=== PATIENT | male | born 1945 | race Caucasian/White ===

== ENCOUNTER 2024-03-20 12:46 | Outpatient (AMB) | payer MEDICARE, SELFPAY ==
--- NOTE | 2024-03-20 13:09 | MHC.OFFVIS ---
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 The patient describes his pain as sharp and severe in nature. He did undergo left knee arthroscopic surgery approximately 8 years ago. He got temporary relief from that procedure. The patient states that last week he had an injection given into his left knee performed by another provider. That injection gave him mild relief. He has tried Tylenol and anti-inflammatory medicines which gave him minimal relief. The patient has difficulty walking even short distances because of his pain. At this point is left knee pain is interfering with his activities of daily living and his ability to sleep well through the night. Allergies No Known Allergies Allergy (Verified 03/20/24 13:13) Medication List - Last Reconciled 03/20/24 by Frantz Walsh MD doxepin mg PO losartan mg PO DAILY zolpidem mg PO [facility] Medical History (Updated 03/21/24 @ 08:44 by Frantz Walsh MD) History of torn meniscus of left knee Social History (Updated 03/20/24 @ 13:13 by BAIRON Kaur) Patient Tobacco Use Status: Never used Tobacco Current occupation: rt handed Physical Exam Vital Signs: BMI result Body Mass Index 27.8 Const Other: Well-nourished well-developed very friendly male awake alert and oriented x3 in no acute distress Extrem Other: Bilateral lower extremity examination shows good capillary refill, no skin lesions noted, normal sensation light touch Left knee examination shows a minimal effusion, palpable crepitus with range of motion, pain with range of motion, range of motion from -3 degrees to 115 degrees, no instability Results Reviewed Results Reviewed: X-rays of the patient's left knee show end-stage degenerative joint disease with grade 4 [id number] arthritis in the medial compartment, subchondral sclerosis, osteophyte formation, no acute bony abnormalities Assessment & Plan Assessment & Plan (1) Arthritis of left knee: Code(s): M17.12 - Unilateral primary osteoarthritis, left knee Category: Medical Plan Mr. Kumar presents with left knee pain due to end-stage degenerative joint disease. I had a lengthy discussion with the patient regarding the treatment options. At this point he appears to be failing continued non operative treatments. The patient is considering undergoing left total knee replacement surgery later this year or early next year. He will contact my office to pick a surgery date when he chooses to do so. I will see him back just prior to his surgery to answer any final questions that he might have. Feel free to call me at any time should questions regarding his orthopedic management arise. I spent 20 minutes in reviewing the patient's records and imaging studies, seeing the patient and documenting in the medical record. Orders: Orders XR knee LT 3V 03/20/24 M25.562 - Pain in left knee Referrals Vascular Surgery Referral I70.90 - Unspecified atherosclerosis Coding Level of Care Code New Pt Level 3 (70809) Complex EM visit Add On G2211 Diagnoses Arthritis of left knee M17.12
[2024-03-20 13:12] VITALS: BMI 27.8
--- OUTSIDE RECORDS SUMMARY | 2024-03-20 14:33 | XMS_ITS | Clinical Summary ---
Author Organization [facility] Address [address] [place] [address] Care Team Providers Care Prawn Trawler Hand Name Role Phone Becca Stevenson NP Primary Care Provider [phone] Allergies No known active allergies Medications Medication Sig Dispensed Refills Start Date End Date Status ALPRAZolam (XANAX) 0.25 MG tablet Take 0.25 mg by mouth. Active fexofenadine (GANGA) 180 MG tablet Take 180 mg by mouth. Active losartan (COZAAR) 50 MG tablet 05/27/2023 Active tamsulosin (FLOMAX) 0.4 MG capsule Take 0.4 mg by mouth daily. 06/13/2023 Active zolpidem (AMBIEN) 5 MG tablet Take 5 mg by mouth nightly as needed. Active Social History Tobacco Use Types Packs/Day Years Used Date Smoking Tobacco: Never Smokeless Tobacco: Never Sex and Gender Information Value Date Recorded Sex Assigned at Not on file Gender Identity Not on file Sexual Orientation Not on file Last Filed Vital Signs Vital Sign Reading Time Taken Comments Blood Pressure 117/74 07/16/2023 10:16 AM EDT Pulse 82 07/16/2023 10:16 AM EDT Temperature 36.3 ??C (97.3 ??F) 07/16/2023 10:16 AM E DT Respiratory Rate 18 07/16/2023 10:16 AM EDT Oxygen Saturation 95% 07/16/2023 10:16 AM EDT Inhaled Oxygen Concentration - - Weight - - Height - - Body Mass Index - - Plan of Treatment Health Maintenance Due Date Last Done Comments Hepatitis C Virus Screening 1945 DTaP/Tdap/Td Vaccines (1 - Tdap) 1965 Pneumococcal Vaccines 50+ (1 of 1 - PCV) 1996 Zoster (Shingles) Vaccine (1 of 2) 1996 RSV Vaccine 60 years and older and Patients (1 - 1-dose 75+ series) 2021 Influenza Vaccine 09/28/2023 10/20/2022, , 11/06/2020, Additional history exists COVID-19 Vaccine (2023- season) 2023 11/26/2021, 12/21/2020 Hepatitis B Vaccines Aged Out No long er eligible based on patient's age to complete this topic Care Teams Prawn Trawler Hand Relationship Specialty Start Date End Date Becca Stevenson NP [address] [facility] [place] [address] PCP - General 07/16/23
--- OUTSIDE RECORDS SUMMARY | 2024-03-20 14:33 | XMS_ITS | Clinical Summary ---
Author Organization [place] [address] [facility] Address [address] [facility] [place] [address] Phone Care Team Providers Care Assembly Worker Name Role Phone Becca Stevenson NP Primary Care Provider Allergies No known active allergies Medications Medication Sig Dispensed Refills Start Date End Date Status doxepin 3 mg tablet Take 3 mg by mouth at bedtime as needed (insomnia). 09/11/2023 Active tamsulosin (FLOMAX) 0.4 mg 24 hr capsule Take 1 Capsule by mouth daily. Take 30 mins after same meal every day. Active ALPRAZolam (XANAX) 0.25 mg tablet Take 1 tablet (0.25 mg total) by mouth. Active bicalutamide (CASODEX) 50 mg tablet 01/13/2022 Active chlorproMAZINE (THORAZINE) 25 mg tablet Take 1 tablet (25 mg total) by mouth. 11/14/2013 Active fexofenadine (GANGA) 180 mg tablet Take 1 tablet (180 mg total) by mouth. Active omeprazole (PriLOSEC) [address] capsule 06/06/2018 Active polyethylene glycol (GoLYTELY) 236-22.74-6.74 -5.86 gram solution 07/01/2020 Active zolpidem (AMBIEN) 5 mg tablet Take 1 tablet (5 mg total) by mouth. 03/18/2017 Active losartan (COZAAR) 50 mg tablet Take 1 tablet (50 mg total) by mouth 1 (one) time each day. 30 tablet 03/05/2024 Active losartan (COZAAR) 50 mg tablet Take 1 tablet (50 mg total) by mouth 1 (one) time each day. 07/17/2023 03/05/2024 Discontinued (Reorder) Active Problems Problem Noted Date Diagnosed Date Prediabetes 07/26/2023 Anemia of chronic disease 01/10/2023 Anxiety 07/29/2022 CKD (chronic kidney disease) 07/29/2022 Hypertension 07/29/2022 Insomnia 07/29/2022 Prostate cancer 07/29/2022 Chronic cholecystitis 11/21/2013 Encounters Date Type Department Care Team Description 01/17/2024 1:00 PM EST Office Visit Walk-In [facility] [address] [address] Dc Delgado PA Symptoms involving urinary system (Primary Dx) 01/16/[facility]24 [facility] [address] [facility] [place] [id number] Becca Stevenson NP Involuntary urine leakage from Last 3 Months Immunizations Name Administration Dates Next Due Influenza, Unspecified 11/27/2022 Pfizer SARS-CoV-2 COVID-19, mRNA, LNP-S, preservative free 12/28/2022 Pneumococcal conjugate 20 va lent (Prevnar 20, PCV 20) 2mo and older 01/09/2023 Zoster recombinant (Shingrix) 19yo and older 02/2019,02/27/2019 Surgical History Surgery Date Site/Laterality Comments CHOLECYSTECTOMY PROCEDURE: HISTORICAL CHOLECYSTECTOMY HERNIA REPAIR PROCEDURE: HISTORICAL HERNIA REPAIR/ARIANE SHOULDER SURGERY Right PROCEDURE: HISTORICAL SHOULDER SURGERY Family History Medical History Relation Name Comments Breast cancer Daughter Colon cancer Father Coronary artery disease Maternal Grandfather Stroke Mother Other cancer Paternal Grandmother Relation Name Status Comments Daughter Alive Father Maternal Grandfather Mother Paternal Grandmother Social History Tobacco Use Types Packs/Day Years Used Date Smoking Tobacco: Never Smokeless Tobacco: Never Alcohol Use Standard Drinks/Week Comments Not Currently 0 (1 standard drink = 0.6 oz pur e alcohol) Sex and Gender Information Value Date Recorded Sex Assigned at Male 03/05/2024 2:35 PM EST Gender Identity Male 03/05/2024 2:35 PM EST Sexual Orientation Straight 03/05/2024 2: 35 PM EST Job Start Date Occupation Industry Not on file Not on file Not on file Obstetrics History Last Filed Vital Signs Vital Sign Reading Time Taken Comments Blood Pressure 111/56 01/17/2024 1:12 PM EST Pulse 80 01/17/2024 1:12 PM EST Temperature 36.6 ??C (97.9 ??F) 01/17/2024 1:12 PM ES T Respiratory Rate - - Oxygen Saturation 96% 01/17/2024 1:12 PM EST Inhaled Oxygen Concentration - - Weight 82.2 kg (181 lb 4.8 oz) 07/25/2023 10:36 AM EDT Height 175.3 cm (5' 9 ) 07/25/2023 10:36 AM EDT Body Mass Index 26.77 07/25/2023 10:36 AM EDT Plan of Treatment Upcoming Encounters Date Type Department Care Team (Late st Contact Info) Description 04/02/2024 3:00 PM EST [facility] [address] [place], [place] [phone] Becca Stevenson, [place] [address] [place] [address] Health Maintenance Due Date Last Done Comments DTaP,Tdap,and Td Vaccines (1 - Tdap) 1965 RSV Immunization Patients 60+ Years Old (1 - 1-dose 75+ series) 2021 Social Influencers of Health Screening 02/03/2022 COVID-19 Vaccine ( season) 2023 12/28/2022, 11/24/2022, 11/26/2021, Additional history exists Influenza Vaccine (#1) 2023 11/27/2022 Depression Screening 01/10/2024 01/09/2023 Falls Risk Assessment 01/10/2024 01/09/2023 Medicare Annual Wellness Visit 01/10/2024 01/09/2023 Hypertension/CHF/CAD Annual BMP Blood Test 11/15/2024 11/16/2023, 08/17/2023, 07/17/2023, Additional history exists Cholesterol Screening (Lipid Panel) 01/10/2028 01/09/2023 Zoster Vaccines Completed 05/29/2019, 02/27/2019 Hepatitis C Screening Completed 01/09/2023 Pneumococcal Vaccine: 65+ Years Completed 01/09/2023 HIB Vaccines Aged Out No longer eligi ble based on patient's age to complete this topic HPV Vaccines Aged Out No longer eligi ble based on patient's age to complete this topic Hepatitis A Vaccines Aged Out No long er eligible based on patient's age to complete this topic Hepatitis B Vaccines Aged Out No long er eligible based on patient's age to complete this topic IPV Vaccines Aged Out No longer eligi ble based on patient's age to complete this topic MMR Vaccines Aged Out No longer eligi ble based on patient's age to complete this topic Meningococcal ACWY Vaccine Aged Out N o longer eligible based on patient's age to complete this topic RSV Immunization Patients Under 20 months Aged Out No longer eligible based on patient's age to complete this topic Varicella Vaccines Aged Out No longer eligible based on patient's age to complete this topic Procedures Procedure Name Priority Date/Time Associated Diagnosis Comments POC URINE NON-AUTO W/O MICRO Routine 01/17/2024 1:55 PM EST Symptoms involving urinary system URINALYSIS MICROSCOPIC ONLY Routine 01/17/2024 1:55 PM EST Symptoms involving urinary system URINALYSIS MICROSCOPIC ONLY Routine 01/17/2024 1:55 PM EST Symptoms involving urinary system CULTURE URINE Routine 01/17/2024 1:55 PM EST Symptoms involving urinary system ANNUAL BMP BLOOD TEST Routine 07/17/2023 HEPATITIS C SCREENING Routine 01/09/2023 DEPRESSION SCREENING Routine 01/09/2023 FALLS RISK ASSESSMENT Routine 01/09/2023 LIPID PANEL Routine 01/09/2023 from Last 3 Months or Most Recently Relevant to Health Maintenance Results * (ABNORMAL) Urinalysis microscopic only (01/17/2024 1:55 PM EST) RBC, Urine 5.8(H) 0 - 4 /HPF LAB URINALYSIS - AUTOMATED METHOD 01/17/2024 7:46 PM EST [facility] WBC, Urine 0.4 0 - 4 /HPF LAB URINALYSIS - AUTOMATED METHOD 01/17/2024 7:46 PM EST [facility] Squamous Epithelial, Urine 2 0 - 60 /LPF LAB URINALYSIS - AUTOMATED METHOD 01/17/2024 7:46 PM EST [facility] Bacteria, Urine Negative Negative /HPF LAB URINALYSIS - AUTOMATED METHOD 01/17/2024 7:46 PM EST [facility] Hyaline Casts, Urine 0.0 0 - 3 /LPF LAB URINALYSIS - AUTOMATED METHOD 01/17/2024 7:46 PM EST [facility] Urine Urine specimen obtained by clean catch procedure / Unknown Non-blood Collection / Unknown 01/17/2024 1:55 PM EST 01/17/2024 1:55 PM EST Dc [facility] LAB URINE ORDERABL ES [facility] [address] [place] [address], * (ABNORMAL) POC Urine Non-Auto W/O Micro (01/17/2024 1:55 PM EST) GLUCOSE POC Negative Negative, Trace mg/dL Leukocytes UA POC Negative Negative mg/dL Nitrite UA POC Negative Urobilinogen UA POC 0.2 E.U./dL mg/dL Protein UA POC Positive Positive, Negative PH UA POC 5.0 STELLA/HM UA POC 250(A) Negative Specific [place] UA POC 1.020 Ketones UA POC Negative Negative Bilirubin UA POC Negative Negative Urine Urine specimen obtained by clean catch procedure / Unknown 01/17/2024 1:55 PM EST Dc [facility] POINT OF CARE TEST ENTER/EDIT ORDERABLES * Culture urine (01/17/2024 1:55 PM EST) Culture, Urine <10,000 CFU/mL gram negative bacilli, insignificant count, no further workup 01/18/2024 12:54 PM EST [facility] Urine Urine specimen obtained by clean catch procedure / Unknown Non-blood Collection / Unknown 01/17/2024 1:55 PM EST 01/17/2024 1:55 PM EST Dc [facility] LAB MICROBIOLOGY - GENERAL ORDERABLES [facility] [address] [place] [address], * Annual BMP Blood Test (07/17/2023) Pathologist [facility] Annual BMP Blood Test Abstracted Historical Provider [facility] Falls Risk Assessment (01/09/2023) [facility] Falls Risk Assessment Abstracted Historical Provider [facility] * Depression Screening (01/09/2023) [facility] Depression Screening Abstracted Historical Provider [facility] * Hepatitis C Screening (01/09/2023) [facility] Hepatitis C Screening Abstracted Historical Provider [facility] E (ABNORMAL) Lipid panel (01/09/2023) [facility] LDL/HDL Ratio 4 0 - 4 Triglycerides 318(A) 0 - 150 mg/dL Cholesterol 235(A) 0 - 200 mg/dL HDL 56 40 mg/dL LDL Cholesterol 116(A) 0 - 100 mg/dL Blood Venous blood specimen / Unknown Historical Provider LAB BLOOD ORDERAB LES from Last 3 Months or Most Recently Relevant to Health Maintenance Care Teams Assembly Worker Relationship Specialty Start Date End Date Becca Stevenson NP [address] [facility] [place] [address] PCP - General 03/23/22
--- OUTSIDE RECORDS SUMMARY | 2024-03-20 14:33 | XMS_ITS | Continuity of Care Document ---
Author Organization [place] [facility] Address [address] [place] [phone] Care Team Providers Care Material Flow Analyst Name Role Phone DONOVAN TERRELL Primary Care Provider DONOVAN TERRELL Referring Provider Assessment Encounter Date Assessment Date Assessment LastModified by Organization Details LastModified Time 03/11/2024 03/11/2024 Reviewed with patient the options available for the latest amplification devices, the differences between makes/models of devices, and the importance of selecting the best make/model for their lifestyle and audiometric needs. Discussed the importance of optimizing the ability to perceive and understand speech by analyzing the output of devices using speech mapping as part of our real-ear verification procedure. The patient's concerns about using hearing devices were discussed. Taking into consideration the patient's lifestyle, personal preferences, severity of hearing loss & hearing handicap, a fitting of dyqxklbs-kx-hiz- canal hearing devices is expected to provide a significant improvement in the patient's ability to communicate. The patient has an insurance that requires an in-network crisis manager to submit the claim and to be credentialed with Medicare. He was provided a list of area audiologists and encouraged to verify that they accept his insurance. [email or web address] Not available 03/11/2024 10:33:17 Plan of Treatment Reminders Order Date Submit Date Provider Last Modified By Organization Details Last Modified Time Details Appointments None record ed. Lab None record ed. Referral None record ed. Procedures None record ed. Surgeries None record ed. Imaging None record ed. Medication Orders None record ed. Patient TargetsNo targets recorded. Patient InstructionsNo instructions recorded. Reason for Referral None Reported. Problems Name Problem SNOMED Code Status Onset Date Resolution Date Notes Provider Name and Address Organization Details Recorded Time Sensorineur al hearing loss of bilateral ears 992207807 Active 2023 Lola hamilton [place] - [facility] 4 14:14:16 Sensorineur al hearing loss in right ear [id number] 0 Active 2023 SANGITA Browne MD [address] [place] [address], [phone] - [facility] 4 10:37:19 Problem Notes None recorded. Procedures Surgical History Date Name Laterality Status Provider Name and Address Organization Details Recorded Time 01/24/2024 Air only Audio (32057) completed Lola Arevalo [place] - [facility] 01/24/2024 10:09:34 10/17/2023 Comp Audio with Tymps (05374 & 60556) completed Lola Arevalo [place] [facility] 10/17/2023 14:14:07 Imaging Results None recorded. Procedure Notes None recorded. Medical Equipment None Reported. Medications Name Sig Start Date Stop Date Status Note LastModified by Organization Details LastModified Time losartan 50 mg tablet active Not Available Not Available No t Available tamsulosin 0.4 mg capsule active Not Available Not Available Not Available zolpidem 5 mg tablet 2023 completed Not Available Not Available Not Available amoxicillin 875 mg-potassium clavulanate 125 mg tablet 2023 completed Not Available Not Available Not Available doxepin 3 mg tablet active Not Available Not Available Not Available Vitals None Recorded Social History None recorded. Functional Status None recorded. Mental Status None recorded. Family History Nothing Reported. Medical History Condition Response Allergies/Hayfever Y Heart Problems N Anxiety N Tonsil Infections N Emphysema N Migraines N Thyroid Problems N Glaucoma N Depression N COPD N Developmental Delay N Nasal or Sinus Problems N Anemia N Immune System Disorder N Anesthesia Complications N Heart Attack ([place]) N Other Skin Condition N Diabetes N Rhinitis N Bleeding Disorder N Food Allergy N Arthritis N Hearing Loss Y Hyperlipidemia N Cancer Y Stroke N Dementia N Nasal polyps N Asthma N High Cholesterol N Sleep Disorder N GERD/Reflux N Liver Disease N Headaches N Fibromyalgia N Hypertension N Speech Delay N Kidney Disease N Past Encounters Encounter ID Performer Location Encounter Start Date Encounter Closed Date Diagnosis/Indication Diagnosis SNOMED-CT Code Diagnosis ICD10 Code Diagnosis Note [id number] JESUS ALBERTO RAMIREZ, [place] [address] [facility],[place] [address] [address] [place] [address] 03/11/2024 09:44:32 03/12/2024 08:06:31 Sensorineural hearing loss of bilateral ears [id number] H90.3 Audiologic al evaluation results:Ri ght ear:{{Norm al Normal through 2 kHz Mild* Moderate M oderately- severe Sev ere Profou nd}} {{hearing sloping to a mild slopi ng to a moderate s loping to moderately severe* sl oping to severe slo ping to profound f lat high frequency low frequency mid frequency cookie bite arias curve}} {{with sen sorineural hearing loss with* cond uctive hearing loss with mixed hearing loss with}} {{excellen t* good fa ir poor no measurable }} word recognitio n.Left ear:{{Norm al* Normal through 2 kHz Mild M oderate Mo derately-s evere Giana re Profoun d}} {{hearing sloping to a mild slopi ng to a moderate s loping to moderately severe* sl oping to severe slo ping to profound f lat high frequency low frequency mid frequency cookie bite arias curve}} {{with sen sorineural hearing loss with* cond uctive hearing loss with mixed hearing loss with}} {{excellen t* good fa ir poor no measurable }} word recognitio n.Asymmetr ic SNHL at 250 to 2kHz and WRS worst in the right. Tympanomet ry:Right Ear:{{Type A* Type As Type Ad Type C Type C, shallow & rounded Ty pe B Type B with large volume Cou ld not maintain a hermetic seal}}Left Ear:{{Type A* Type As Type Ad Type C Type C, shallow & rounded Ty pe B Type B with large volume Cou ld not maintain a hermetic seal}} Health Concerns Section Related Observation LastModified by Organization Detai ls LastModified Time None Recorded Concern Status LastModified by Organization Details LastModified Time None Recorded Payers Encounter Date Sequence Insurance Name Policy Number Policy [place] Covered Member ID [place] Member ID Guarantor Name 03/11/2024 2 [place] [id number] Clemente Kumar [id number] Clemente Kumar 03/11/2024 1 [place] [employer] Clemente Kumar [id number] Clemente Kumar Notes Date Note Type Note Provider Name and Address Organization Details Recorded Time 03/11/2024 text/html Amplification HPIReported bypatient.Current satisfaction with amplificationthey are not satisfied with current settings and technology Daily useinconsistent use of amplificationNotes:[employer] st hearing aid around 2009. Worked with Kary Parada until she retired. Went to [place] and is currently fitted with [employer] hearing aid; reportedly not satisfied as they keep clogging with wax and the dome is difficult to put back on. Patient returned to our office for the initial fitting of {{hearing devices* a hearing device in the right ear a hearing device in the left ear}} as a {{first time user of amplification* longsta nding user of amplification longstan ding user of hearing devices longstanding user of amplification in the right ear longstanding user of amplification in the left ear}}. They have reported significant difficulty communicating in {{adverse listening situations* both adverse listening situations and in quiet}} and amplification has been recommended. Patient's case has been reviewed by an rental counter clerk who has provided medical clearance for the use of hearing devices. JESUS ALBERTO RAMIREZ, [address],[place] [address], [place], [phone], [facility] 03/11/2024 10:33:49
--- OUTSIDE RECORDS SUMMARY | 2024-03-20 14:33 | XMS_ITS | Clinical Summary ---
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 0 Active zolpidem (AMBIEN) 5 MG tablet 0 03/18/2017 Active omeprazole (PriLOSEC) 20 MG capsule 0 06/06/2018 Active chlorproMAZINE (THORAZINE) 25 MG tablet Take 25 mg by mouth. 0 11/14/2013 Active PEG 7110-NMf-ZvPad-NaCl-Na Sulf (PEG-3350/Electrolytes ) 236 g SOLR 0 07/01/2020 Active losartan (COZAAR) tablet 25 mg 0 11/30/2020 Active bicalutamide (CASODEX) 50 MG tablet 0 01/13/2022 Active Active Problems Problem Noted Date Diagnosed Date Arthritis of knee, left 08/06/2021 Arthritis of left knee 04/13/2017 Arthralgia of left knee 04/13/2017 Chronic pain of left knee 11/08/2016 Family History Medical History Relation Name Comments Cancer Father Relation Name Status Comments Father Social History Tobacco Use Types Packs/Day Years Used Date Smoking Tobacco: Never Assessed Sex and Gender Information Value Date Recorded Sex Assigned at Not on file Gender Identity Not on file Sexual Orientation Not on file Job Start Date Occupation Industry Not on file Not on file Not on file Last Filed Vital Signs Vital Sign Reading Time Taken Comments Blood Pressure - - Pulse - - Temperature - - Respiratory Rate - - Oxygen Saturation - - Inhaled Oxygen Concentration - - Weight 72.6 kg (160 lb) 11/08/2016 9:07 AM EDT Height 175.3 cm (5' 9 ) 11/08/2016 9:07 AM EDT Body Mass Index 23.63 11/08/2016 9:07 AM EDT Plan of Treatment Health Maintenance Due Date Last Done Comments Hepatitis C Screening 1945 COVID-19 Vaccine (#1) 1946 Depression Screening 1958 Preventative Health Evaluation 1964 DTap / Tdap / Td (1 - Tdap) 1965 Shingrix-Zoster Vaccine (1 of 2) 1996 Fall Risk Assessment 2011 Pneumococcal Vaccine (1 of 1 - PCV) 2011 RSV Adult > 60+ Yrs or Pregn ant (1 - 1-dose 75+ series) 2021 Influenza Vaccine (#1) 2023 Hepatitis B Vaccines Aged Out No long er eligible based on patient's age to complete this topic RSV Ped < 20 months Aged Out No longe r eligible based on patient's age to complete this topic Care Teams Rubber Extrusion Machine Operator Relationship Specialty Start Date End Date Ambrosio Lopez MD [address] [address] PCP - General Internal Medicine 10/14/16
--- OUTSIDE RECORDS SUMMARY | 2024-03-20 14:33 | XMS_ITS | Data Portability ---
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 [email or web address] Not available 10/17/2023 14:11:48 10/17/2023 10/17/2023 For the sensation of aural clogging, physical exam unrevealing. Reassurance provided there is no foreign body and no infection. Audiometric testing demonstrates asymmetric neurosensory loss affecting the right greater than left ear. Differential diagnosis of asymmetric hearing loss reviewed with patient. As patient feels the symptom is advancing, we will order MRI of the IACs and brain. Will call patient with results. Will also arrange for repeat audiometry in 3 months to verify stability. In the interim, will provide copy of audiogram and medical clearance form so that patient can have the settings adjusted on his hearing aids. Will repeat the audiometric testing upon his scheduled return in 3 months. Patient understands to call sooner than follow-up with any concerns that arise. [email or web address] Not available 10/17/2023 16:27:01 03/11/2024 03/11/2024 Reviewed with patient the options [...] loss & hearing handicap, a fitting of vqbleses-tc-loa- canal hearing devices is expected to provide a significant improvement in the patient's ability to communicate. 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 He was provided a list of area audiologists and encouraged to verify that they accept his insurance. [email or web address] Not available 03/11/2024 10:33:17 Plan of Treatment Reminders Order Date Submit Date Provider Last Modified By Organization Details Last Modified Time Details Appointments None recorded. Lab None recorded. Referral None recorded. Procedures None recorded. Surgeries None recorded. Imaging MRI, brain + internal auditory canal, w/wo contrast - MRI, BRAIN + INTERNAL AUDITORY CANAL, W/WO CONTRAST asymmetric hearing loss 2023 024 [facility] ([facility] [address] [place], [address], 09:45:55 Medication Orders None recorded. Patient TargetsNo targets recorded. Patient InstructionsNo instructions recorded. Reason for Referral None Reported. Results Created Date Observation Date Name Description Value Unit Range Abnormal Flag Note LastModifiedBy Organization Detail LastModifiedTime 10/18/19 24 audio gram No observ ation record ed. [email or web address] Not Available 09/28 08:55:23 10/27/19 24 10/26/2023 MRI, brain + inter nal audit ory canal , w/wo contr ast No observ ation record ed. [facility] [address] [place], [address], 11/10/2023 14:18:56 Result Notes None recorded. Problems Name Problem SNOMED Code Status Onset Date Resolution Date Notes Provider Name and Address Organization Details Recorded Time Sensorineur al hearing loss of bilateral ears 021168888 Active 2023 Lola hamilton [place] - [facility] 14:14:16 Sensorineur al hearing loss in right ear 2358799477607 0 Active 2023 SANGITA Browne MD [address] [place] [address], [phone] [place] [address] - [facility] 10:37:19 Problem Notes None recorded. Procedures Surgical History Date Name Laterality Status Provider Name and Address Organization Details Recorded Time 01/24/2024 Air only Audio (70164) completed Lola Arevalo [place] - [facility] 01/24/2024 10:09:34 10/17/2023 Comp Audio with Tymps (70065 & 87886) completed Lola Arevalo [place] - [facility] 10/17/2023 14:14:07 Imaging Results Imaging Date Name Status LastModified by Organiz ation Details LastModified Time 10/18/2023 audiogram completed [email or web address] Information n ot available 10/18/2023 08:55:23 10/26/2023 MRI, brain + internal auditory canal, w/wo contrast completed [address] [facility] [address] [place], [address], 11/10/2023 14:18:56 Procedure Notes None recorded. Medical Equipment None [...] Not Available Not Available Not Available Vitals Date Recorded Body height Body mass index (BMI) Body weight Provider Name and Address Organization Details Last Updated DateTime 10/17/2023 172.72 cm 27.4 kg/m2 17472.63 g Betty Salamanca [facility] 10/17/2023 13:12:44 Date Recorded Body height Body mass index (BMI) Body weight Provider Name and Address Organization Details Last Updated DateTime 01/24/2024 172.72 cm 27.4 kg/m2 92725.63 g Nhi Muñoz [facility] 01/24/2024 09:48:00 Social History None recorded. Functional Status None recorded. Mental Status None recorded. Family History Nothing Reported. Medical History Condition Response Allergies/Hayfever Y Heart Problems N Anxiety N Tonsil Infections N Emphysema N Migraines N Thyroid Problems N Glaucoma N Developmental Delay N Depression N COPD N Nasal or Sinus Problems N Anemia N Immune System Disorder N Anesthesia Complications N Heart Attack (NH) N Other Skin Condition N Diabetes N Rhinitis N Bleeding Disorder N Food Allergy N Hearing Loss Y Arthritis N Hyperlipidemia N Cancer Y Stroke N Dementia N Nasal polyps N Asthma N Sleep Disorder N High Cholesterol N GERD/Reflux N Liver Disease N Headaches N Fibromyalgia N Hypertension N Speech Delay N Kidney Disease N Past Encounters Encounter ID Performer Location Encounter Start Date Encounter Closed Date Diagnosis/Indication Diagnosis SNOMED-CT Code Diagnosis ICD10 Code Diagnosis Note [id number] KIRILL CASTELLANOS MD [facility] [address] [address] 10/17/2023 12:57:51 10/17/2023 14:45:01 Sensorineural hearing loss of bilateral ears 576789067 H90.3 [id number] Karson RODRIGUEZ [facility] [address] [address] 10/17/2023 14:11:26 10/17/2023 16:11:21 Sensorineural hearing loss of bilateral ears 487430583 H90.3 Audiologic al evaluation results:Ri ght ear:{{Norm [...] Cou ld not maintain a hermetic seal}} [id number] SANGITA YOON MD [facility] [address] [address] 01/24/2024 09:44:32 01/24/2024 10:42:39 Sensorineural hearing loss in right ear 6330318011 9100 H90.A21 MRI negative. No cerumen or effusion. Wants a hearing aid evaluation here. I will arrange this. [id number] WINSTON BANDA MA, CCC-A [facility] [address] [address] 01/24/2024 10:09:00 01/24/2024 13:35:33 Sensorineural hearing loss of bilateral ears 803444843 H90.3 Audiologic al evaluation results:Ri ght ear:Mild sloping to moderately severe sensorineu ral hearing loss.Left ear:Normal sloping to moderately severe sensorineu ral hearing loss. Asymmetric SNHL at 250 to 2kHz and WRS worst in the right. [id number] Karson RODRIGUEZ [place] [facility] [place] [facility] [address] [place] [address] 03/11/2024 09:44:32 03/12/2024 08:06:31 Sensorineural hearing loss of bilateral ears 524040389 H90.3 Audiologic al evaluation results:Ri ght ear:{{Norm [...] by Organization Details LastModified Time None Recorded Advance Directives Directive None Recorded Payers Encounter Date Sequence Insurance Name Policy Number Policy [place] Covered Member ID [place] Member ID Guarantor Name 10/17/2023 2 [place] [id number] Clemente Kumar [id number] Clemente Kumar 10/17/2023 1 [place] [employer] [employer] Clemente Kumar [id number] Clemente Kumar 10/17/2023 2 [place] [id number] Clemente Kumar [id number] Clemente Kumar 10/17/2023 1 [place] [place] Clemente Kumar [id number] Clemente Kumar 01/24/2024 2 [place] [id number] Clemente Kumar [id number] Clemente Kumar 01/24/2024 1 [place] [facility] Clemente Kumar [id number] Clemente Kumar 01/24/2024 2 [place] [id number] Clemente Kumar [id number] Clemente Kumar 01/24/2024 1 [place] [facility] Clemente Kumar [id number] Clemente Kumar 03/11/2024 2 [place] [id number] Clemente Kumar [id number] Clemente Kumar 03/11/2024 1 [place] [facility] Clemente Kumar [id number] Clemente Kumar Notes Date Note Type Note Provider Name and Address Organization Details Recorded Time 10/17/2023 text/html 78 year old male presents for evaluation of the right ear. Reports the right ear has been bothersome lately, often feels blocked. The filter on his hearing aid has been blocked as well. Saw his PCP, who referred him here. He has also been seen by urgent care. My ear was all infected but they didn't give me anything for that. Went to PCP and was given oral antibiotics. He took the full course and the infection resolved but he is still having trouble on the right. At one point he states he had a foreign body in the ear but none of these providers could find it. He endorses hearing loss but no otalgia and no otorrhea. He notes a history of more cerumen in the right than left ear. He gets his hearing aids at [facility]. Unsure when his last audiogram was performed. KIRILL LEE MD [address] [place] [address], [place], [address], [facility] - [facility] 10/17/2023 16:59:48 01/24/2024 text/html Hx of asymmetric hearing loss worse on the right. MRI IAC was normal. Audio today is stable compared to last tested. He is using hearing aids on both sides. SANGITA YOON MD [address] [place] [address] [address], [place], [address], [facility] - [facility] 01/24/2024 10:37:45 03/11/2024 text/html Amplification HPIReported bypatient.Current satisfaction with amplificationthey are not satisfied with current settings and technology Daily useinconsistent use of amplificationNotes:[facility] st hearing aid around 2009. Worked with Kary Parada until she retired. Went to [facility] and is currently fitted with [facility] hearing aid; reportedly not satisfied as they [...] Patient's case has been reviewed by an engineer booster and exhauster who has provided medical clearance for the use of hearing devices. Karson RODRIGUEZ 100 [facility] [address], [place], [address], [facility] 03/11/2024 10:33:49
== END 2024-03-20 13:43 | disposition home or self-care (01) ==
PROVIDERS: PCP Nurse Practitioner Primary Care; Visit Provider Orthopaedic Surgery
DX: M17.12 Unilateral primary osteoarthritis, left knee (principal)
CPT/HCPCS: 99203; G2211

== ENCOUNTER 2024-03-20 15:37 | Outpatient (REF) | payer MEDICARE, SELFPAY ==
--- NOTE | ~2024-03-20 | XR_ITS ---
EXAMINATION: XR KNEE 3 VIEWS LEFT HISTORY: M25.562 - Pain in left knee COMPARISON: There are no prior studies available for comparison. FINDINGS: Three views of the left knee are submitted. Osseous mineralization is normal. There is no fracture or dislocation. There is severe osteoarthritis of the medial compartment with joint space narrowing and osteophyte formation. There is moderate degenerative change of the patellofemoral joint. There is calcification of the popliteal artery. XR/XR knee LT 3V IMPRESSION: Osteoarthritis of the left knee as described. Electronically signed by: Murali Randolph MD 03/21/2024 09:23 AM SARA
== END 2024-03-20 15:38 | disposition home or self-care (01) ==
LOC: HO.HOSX 15:37
PROVIDERS: Visit Provider Orthopaedic Surgery
DX: M25.562 Pain in left knee (principal); M17.11 Unilateral primary osteoarthritis, right knee; R26.2 Difficulty in walking, not elsewhere classified
CPT/HCPCS: 73562; 99202

== ENCOUNTER 2024-03-28 10:04 | Outpatient (AMB) | payer MEDICARE, SELFPAY ==
--- NOTE | 2024-03-28 10:11 | A.OFFVIS_ITS ---
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 Patient states he had an xray and was told to see Vascular. 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 He was originally seen by Orthopedics for progressively worsening left knee pain. It was sharp and severe in nature and has been going on for several years. Most recently upon workup he had undergone an x-ray on 03/20/2024 and noted to have calcifications in the popliteal artery. He was sent in for evaluation. Of note patient is a nonsmoker nondiabetic. He is able to walk a block or 2 but reports that his knee pain is his biggest issue. [facility] Medical History History of torn meniscus of left knee Social History Patient Tobacco Use Status: Never used Tobacco Current occupation: rt handed Review of Systems Const All systems reviewed & are unremarkable except as noted in HPI and below Reports no additional complaints ENT Reports Normal hearing present Card Denies chest pain, Denies chest pain at rest, Denies chest pain with activity and Denies pedal edema Resp Denies cough GI Denies abdominal pain Musc Denies abnormal gait, Denies muscle cramps and Denies radiating pain into limb Skin/Breast Denies skin ulcer and Denies wounds Neuro Reports Normal hearing present and Denies abnormal gait Psych Reports no additional complaints Physical Exam Const General: cooperative, healthy appearing and comfortable Orientation/consciousness: oriented to person, oriented to place and oriented to time HEENT Head: Yes normal to inspection Neck Neck: Yes normal visual inspection Carotids: no bruits Chest Chest palpation & inspection: normal inspection of the chest Resp Effort & Inspection: normal respiratory effort and able to speak in complete sentences Auscultation: clear to auscultation bilaterally, no crackles, no rales, no rhonchi and no wheezes Cardio Other: Bilateral DP and PT signals. He did not have palpable pulses. Rate: regular rate Rhythm: regular rhythm Heart sounds: S1 normal heart sound present and S2 normal heart sound present Bruits: no carotid bruits GI Inspection: Yes normal to inspection Skin Wounds: no wounds Hair: normal Neuro General: oriented to person, oriented to place and oriented to time Cranial nerves: Yes CN's II-XII intact bilaterally and Yes Normal hearing present Cognition (Neuro): normal cognition Motor exam (neuro): 5/5 motor strength present throughout Extrem Other: venous exam: No significant superficial varicosities or spider telangiectasias, minimal edema General: No clubbing, No cyanosis and No edema Psych Appearance: grossly normal Mental Status: mental status grossly normal Speech and movement: Normal speech and movement present Results Reviewed Results Reviewed: X-ray from 03/20/2024 of the left knee was reviewed. Assessment & Plan Assessment & Plan (1) PAD (peripheral artery disease): Code(s): I73.9 - Peripheral vascular disease, unspecified Category: Medical Plan: In short patient has has an element of peripheral vascular disease. I did review the pathophysiology of peripheral vascular disease with the patient. In addition we did discuss routine conservative measures including a healthy diet and the importance of exercise and ambulation. We did discuss risk factor modification. I have taken the liberty of ordering noninvasive arterial testing to better evaluate this.. Thank you for allowing us to participate in this hiram ent's care. If there are any questions or concerns please do not hesitate to contact us. Orders: Orders US arterial duplex LE BI 1 Week I73.9 - Peripheral vascular disease, unspecified Coding Level of Care Code New Pt Level 4 (36362) Complex EM visit Add On G2211 Diagnoses PAD (peripheral artery disease) I73.9
== END 2024-03-28 10:43 | disposition home or self-care (01) ==
PROVIDERS: Visit Provider Surgery Vascular Surgery
DX: I73.9 Peripheral vascular disease, unspecified (principal)
CPT/HCPCS: 99204; G2211

== ENCOUNTER → 2024-03-28 10:04 | Outpatient (BNVA) | payer MEDICARE, SELFPAY | PROVIDERS: Visit Provider Surgery Vascular Surgery | DX: I73.9 Peripheral vascular disease, unspecified (principal) | CPT/HCPCS: 99202 ==